=== PATIENT | female | born 1970 | race Caucasian/White ===

== ENCOUNTER → 2017-06-28 | Outpatient (CLI) | payer OTHER ==
--- NOTE | 2017-06-28 16:09 | MAMMOGRAPHY REPORT ---
BILATERAL DIGITAL SCREENING MAMMOGRAM TOMOSYNTHESIS WITH CAD: 06/28/2017 CLINICAL HISTORY: Routine screening. Patient has no complaints. TECHNIQUE: Breast tomosynthesis in addition to standard 2D mammography was performed. Current study was also evaluated with a Computer Aided Detection (CAD) system. COMPARISON: Comparison is made to exams dated: 03/06/2016 ultrasound, 09/05/2015 ultrasound, 5 mammogram, 03/02/2015 ultrasound, 08/24/2014 ultrasound, and 08/24/2014 mammogram - [facility]. BREAST COMPOSITION: The tissue of both breasts is heterogeneously dense, which may obscure small mas ses. FINDINGS: No suspicious masses, calcifications, or areas of architectural distortion are noted in ei ther breast. There has been no significant interval change compared to prior exams. Scattered bilater al benign-appearing calcifications are not significantly changed. IMPRESSION: ACR BI-RADS CATEGORY 2: BENIGN There is no mammographic evidence of malignancy. A 1 year screening mammogram is recommended. Additi onally, the patient is overdue for follow-up targeted ultrasound of a left 12:00 breast mass; the pat ient has already been scheduled for the follow-up ultrasound. The patient will receive written notification of the results. Approximately 10% of breast cancers are not detected with mammography. A negative mammographic report should not delay biopsy if a clinically suggestive mass is present. Lyudmila Cervantes M.D. /:06/28/2017 14:54:47 Instructor Adjunct Surgical Technician: Janelle Olson, [facility] letter sent: Normal 1/2 BI-RADS Code: ACR BI-RADS Category 2: Benign
== END | disposition home or self-care (01) ==
LOC: C.MAMM 08:38
PROVIDERS: ATTEND Student in an Organized Health Care Education/Training Program
DX: Z12.31 Encounter for screening mammogram for malignant neoplasm of breast (principal); N63 Unspecified lump in breast

== ENCOUNTER → 2017-07-15 | Outpatient (CLI) | payer OTHER ==
--- NOTE | 2017-07-15 12:36 | MAMMOGRAPHY REPORT ---
ULTRASOUND OF LEFT BREAST: 07/15/2017 CLINICAL HISTORY: 47-year-old woman presents for two-year follow-up of a benign-appearing solid mass in the 12:00 left breast, 4 cm from the nipple. COMPARISON: Comparison is made to exams dated: 06/28/2017 mammogram, 03/06/2016 mammogram, 03/06/2016 u ltrasound, 09/05/2015 ultrasound, 03/02/2015 mammogram, and 08/24/2014 ultrasound - [facility]. FINDINGS: Targeted ultrasound was performed in the 12:00 left breast, 4 cm from the nipple. A round hypoechoic solid mass is again identified, currently measuring 5.9 x 5.6 x 4.8 mm. Previous measure ments dating back to 09/05/2015 were 6.3 x 5.8 x 6.1 mm. Given the stable 2 slight interval decrease in size this is considered benign, given that it has been followed for 2 years. Therefore, would re commend resuming annual screening mammography schedule. The patient recently had a screening mammogr am performed 06/28/2017 which was considered benign and therefore would recommend routine mammograms in June 2018. IMPRESSION: ACR BI-RADS CATEGORY 2: BENIGN A 5.9 mm hypoechoic solid rounded mass in the 12:00 left breast, 4 cm from the nipple has been stable to slightly decreased in size over 2 years and is therefore considered benign. Return to annual mamm ogram screening schedule is recommended. These results and recommendations were discussed with the p atient at the time of the exam. More Mercer M.D. ay/:07/15/2017 09:24:31 Rerolling Machine Operator: Maribeth FRANCISCO(Steven)(M), [facility] letter sent: Normal 1/2 BI-RADS Code: ACR BI-RADS Category 2: Benign
== END | disposition home or self-care (01) ==
LOC: C.MAMM 08:58
PROVIDERS: ATTEND Obstetrics & Gynecology
DX: N63.0 Unspecified lump in unspecified breast (principal)

== ENCOUNTER → 2018-05-12 | Outpatient (CLI) | payer OTHER | END | disposition home or self-care (01) | LOC: C.LAB 09:01 | PROVIDERS: ATTEND Physician Assistant | DX: Z00.00 Encounter for general adult medical examination without abnormal findings (principal) ==